=== PATIENT | female | born 1960 | race Caucasian/White ===

== ENCOUNTER 2017-05-10 11:25 | Emergency (ER) | payer OTHER ==
[~2017-05-10] VITALS: Ht 165.1 cm; Wt 96.5 kg
[~2017-05-10 11:25] MED LIST: AFEDITAB CR60 MG PO; ASPIR 8181 M1 PO; CARVEDILOL6.25 MG PO; GABAPENTIN100 MG PO; HYDROCHLOROTHIA25 MG PO; LASIX40 MG PO; LISINOPRIL40 MG PO; MICROZIDE12.5 M1 PO; NIFEDIPINE ER60 MG PO; NORVASC5 MG PO; ROBITUSSIN DM118 ML PO
[2017-05-10] MEDS ORDERED: CARVEDILOL25 MG PO (13:15)
[2017-05-10] MEDS ORDERED: CHLORTHALIDONE25 MG PO (13:15)
[2017-05-10] MEDS ORDERED: LISINOPRIL40 MG PO (13:15)
[2017-05-10] MEDS ORDERED: CIPROFLOXACIN500 M1 PO (13:15)
[2017-05-10] MEDS ORDERED: FLEXERIL10 MG PO (13:16)
[2017-05-10] MEDS ORDERED: ROPINIROLE HCL0.5 MG PO (13:16)
[2017-05-10 13:43] LABS: HEMATOCRIT 44.5 % (36.0-46.0); MCH 30.6 PG (29.0-34.0); MCHC 35.5 G/DL (30.0-36.0); MCV 86.1 FL (83-99); MEAN PLAT.VOLUME 9.4 uM^3 (9.5-12.4); PLATELET COUNT 326 K/uL (156-360); RBC DIS.WIDTH-CV 12.3 % (11.8-14.6); RBC DIS.WIDTH-SD 38.3 % (39-53); RED BLOOD COUNT 5.17 M/uL (3.80-5.20); WHITE BLOOD COUNT 9.7 K/uL (4.1-10.2)
[2017-05-10 13:55] LABS: CHLORIDE 101 mEq/L (99-109); POTASSIUM 4.3 mEq/L (3.7-5.4); SODIUM 139 mEq/L (136-147)
[2017-05-10 13:57] LABS: GLUCOSE 114 mg/dL (70-99)
[2017-05-10 13:58] LABS: ANION GAP 13 MEQ/L (2-14)
[2017-05-10 13:59] LABS: TOTAL BILIRUBIN 1.4 mg/dL (0.0-1.0)
[2017-05-10 14:00] LABS: ALKALINE PHOSPHATASE 112 IU/L (3-129)
[2017-05-10 14:01] LABS: GFR ESTIMATE (CALCULATED) > 59 mL/min/
[2017-05-10 14:02] LABS: UREA NITROGEN (BUN) 12 mg/dL (9-23)
[2017-05-10 14:04] LABS: LIPASE 20 U/L (1.0-51.0)
[2017-05-10 14:33] LABS: ADD MIUA? YES; BILIRUBIN NEGATIVE; BLOOD NEGATIVE; COLOR YELLOW ((YELLOW)); GLUCOSE (STRIP) NEGATIVE; KETONES NEGATIVE; LEUKOCYTES LARGE; NITRITE NEGATIVE; PROTEIN (STRIP) NEGATIVE; SPECIFIC GRAVITY 1.009 (1.000-1.030); UROBILINOGEN 0.2 MG/DL (0.2-1.0)
[2017-05-10 15:10] LABS: BACTERIA 2+ /HPF; CASTS NONE SEEN /LPF; CRYSTALS NONE SEEN; EPITHELIAL CELLS 2+ /HPF; MUCUS NONE SEEN /LPF; RED BLOOD CELLS 0-5 /HPF (0-5); WHITE BLOOD CELLS TNTC /HPF (0-5)
[2017-05-10] MEDS ORDERED: KEFLEX500 MG PO (15:17)
[2017-05-10] MEDS ORDERED: ULTRAM50 MG PO (15:17)
[2017-05-10 15:47] VITALS: BP 112/79
== END 2017-05-10 15:48 | disposition home or self-care (01) ==
LOC: EME 11:25
PROVIDERS: Physician Assistant
DX: N39.0 Urinary tract infection, site not specified (principal); R10.31 Right lower quadrant pain; R10.32 Left lower quadrant pain; I10 Essential (primary) hypertension; Z85.9 Personal history of malignant neoplasm, unspecified; Z90.11 Acquired absence of right breast and nipple; Z92.21 Personal history of antineoplastic chemotherapy; Z92.3 Personal history of irradiation
CPT/HCPCS: 74176; 80053; 81003; 83690; 85027; 99281; 99284; J1885

== ENCOUNTER → 2018-02-09 | Outpatient (CLI) | payer OTHER ==
[~2018-02-09] VITALS: Ht 162.6 cm; Wt 92.5 kg
[~2018-02-09] MED LIST changes: +ALDACTONE25 MG PO; +AUGMENTIN875 MG PO; +CARVEDILOL25 MG PO; +CATAPRES-TTS 11 EACH TD; +CHLORTHALIDONE25 MG PO; +CIPROFLOXACIN500 M1 PO; +CLONIDINE HCL0.1 MG PO; +FLEXERIL10 MG PO; +KEFLEX500 MG PO; +LO-DOSE ASPIRIN81 M2 PO; +LORCET 5-325 M1 EACH PO; +PRAVACHOL20 MG PO; +PREDNISONE10 MG PO; +ROPINIROLE HCL0.5 MG PO; +ULTRAM50 MG PO; +VENLAFAXINE H37.5 M3 PO; +ZESTRIL40 MG PO
[2018-02-09 09:20] LABS: CHLORIDE 104 MEQ/L (99-109); CREATININE 0.5 MG/DL (0.6-1.3); GFR ESTIMATE (CALCULATED) > 59 mL/min/; GLUCOSE 105 mg/dL (70-99); SODIUM 138 MEQ/L (136-147); UREA NITROGEN (BUN) 9 mg/dL (9-23)
== END | disposition home or self-care (01) ==
LOC: AMB 11-03 07:30
PROVIDERS: Internal Medicine
DX: Z12.11 Encounter for screening for malignant neoplasm of colon (principal); Z80.0 Family history of malignant neoplasm of digestive organs; Z85.3 Personal history of malignant neoplasm of breast; K63.5 Polyp of colon; K62.1 Rectal polyp; K57.30 Diverticulosis of large intestine without perforation or abscess without bleeding; K66.0 Peritoneal adhesions (postprocedural) (postinfection); I10 Essential (primary) hypertension; E78.00 Pure hypercholesterolemia, unspecified; M19.90 Unspecified osteoarthritis, unspecified site; E66.09 Other obesity due to excess calories; Z68.34 Body mass index [BMI] 34.0-34.9, adult; Z79.82 Long term (current) use of aspirin; Z80.3 Family history of malignant neoplasm of breast; Z82.49 Family history of ischemic heart disease and other diseases of the circulatory system; Z91.048 Other nonmedicinal substance allergy status
CPT/HCPCS: 80048; 82948; 88305; J2250